=== PATIENT | female | born 1995 | race Two or more races ===

== ENCOUNTER 2020-04-17 19:16 | Emergency (ER) | payer OTHER ==
[~2020-04-17] VITALS: Ht 157.5 cm; Wt 63.5 kg
--- NOTE | 2020-04-17 19:30 | NUR ---
ED Nurse Note: Recieved pt BIBA from bus, pt was on bus and would not get off, pt is awake and alert, mute, will not verbally respond to any questions asked, intermittently stastes "yes", and "stop", pt does appear to understand, pt has blank stare and wont say anything, pt gowned and placed on cardiac monitoring, pt does cooperate mostly, v/s stable, no sob or labored breathing, IV line placed and labs done, will continue to closely monitor.
[2020-04-17 20:19] LABS: BASOPHILS % (AUTO) 0.9 % (0.0-2.0); HEMATOCRIT 41.2 % (37.0-47.0); HEMOGLOBIN 13.7 G/DL (12.0-16.0); LYMPHOCYTES % (AUTO) 28.6 % (20.0-45.0); MEAN CORPUSCULAR VOLUME 93 FL (80-99); MONOCYTES % (AUTO) 7.5 % (1.0-10.0); PLATELET COUNT 367 K/UL (150-450); RED BLOOD COUNT 4.44 M/UL (4.20-5.40); RED CELL DISTRIBUTION WIDTH 12.6 % (11.6-14.8); WHITE BLOOD COUNT 10.2 K/UL (4.8-10.8)
[2020-04-17 20:56] LABS: ALANINE AMINOTRANSFERASE 19 U/L (12-78); ALBUMIN/GLOBULIN RATIO 1.2 (1.0-2.7); ALKALINE PHOSPHATASE 102 U/L (46-116); BILIRUBIN,TOTAL 0.8 MG/DL (0.2-1.0); BLOOD UREA NITROGEN 14 mg/dL (7-18); CALCIUM 8.9 MG/DL (8.5-10.1); CHLORIDE 105 MMOL/L (98-107); CREATININE 0.7 MG/DL (0.55-1.30); POTASSIUM 3.8 MMOL/L (3.5-5.1); SODIUM 140 MMOL/L (136-145)
[2020-04-17 21:02] LABS: CARBON DIOXIDE 23 MMOL/L (21-32)
[2020-04-17 21:36] LABS: ASPARTATE AMINO TRANSFERASE 14 U/L (15-37)
--- NOTE | 2020-04-17 21:40 | NUR ---
ED Nurse Note: Pt continues to rest in bed, remains selectively mute, pt straight cath for urine sample and pt began to speak more, stating she has to go to the bathroom and she wants to go home, does not answer any more questions, remains on monitoring, pt sitting up in bed with blank start, will continue to closely monitor, pt pupils pinpoint.
--- NOTE | 2020-04-17 21:55 | Emergency Room Report ---
History of Present Illness General Chief Complaint: General Complaint Source: Patient, EMS Present Illness HPI 24-year-old female, unknown medical history presents with acute altered mental status, patient was on the bus refused to get off the bus, when police approached her she remained silent refused to answer any questions she was brought in by EMS for evaluation no known aggravating relieving factors no drug paraphernalia found on person, patient presents for evaluation and treatment of her acute altered state Allergies: Coded Allergies: UNABLE TO ASSESS (Unverified , 04/17/20) PT. IS CONFUSED COVID-19 Screening Contact w/high risk pt: No Experienced COVID-19 symptoms?: No COVID-19 Testing performed HEALTH INFORMATION ADMINISTRATOR: No Patient History Limited by: medical condition - Confused Past Medical History: see triage record Reviewed Nursing Documentation: PMH: Agreed; PSxH: Agreed Nursing Documentation-PMH Past Medical History: Deferred Review of Systems All Other Systems: limited - Patient refusing to answer questions Physical Exam Vital Signs Date Time Temp Pulse Resp B/P (MAP) Pulse Ox O2 Delivery O2 Flow Rate FiO2 04/17/20 19:12 97.7 71 18 125/86 (99) 99 Room Air Sp02 EP Interpretation: reviewed, normal General Appearance: well appearing, no apparent distress Head: normocephalic, atraumatic ENT: hearing grossly normal, normal voice Neck: full range of motion, supple Respiratory: no respiratory distress, speaking full sentences Neurologic: alert, other - Responsive Psychiatric: other - Flat affect Skin: no rash Medical Decision Making Diagnostic Impression: Primary Impression: Altered mental state Qualified Codes: R41.82 - Altered mental status, unspecified ER Course 24-year-old female presents with acute altered mental state differential includes metabolic, drug-induced Will continue to observe patient until she reconstitutes Patient signed out to night Laboratory Tests Test 04/17/20 19:50 White Blood Count 10.2 K/UL (4.8-10.8) Red Blood Count 4.44 M/UL (4.20-5.40) Hemoglobin 13.7 G/DL (12.0-16.0) Hematocrit 41.2 % (37.0-47.0) Mean Corpuscular Volume 93 FL (80-99) Mean Corpuscular Hemoglobin 30.9 PG (27.0-31.0) Mean Corpuscular Hemoglobin Concent 33.3 G/DL (32.0-36.0) Red Cell Distribution Width 12.6 % (11.6-14.8) Platelet Count 367 K/UL (150-450) Mean Platelet Volume 6.0 FL (6.5-10.1) L Neutrophils (%) (Auto) 61.0 % (45.0-75.0) Lymphocytes (%) (Auto) 28.6 % (20.0-45.0) Monocytes (%) (Auto) 7.5 % (1.0-10.0) Eosinophils (%) (Auto) 2.0 % (0.0-3.0) Basophils (%) (Auto) 0.9 % (0.0-2.0) Sodium Level 140 MMOL/L (136-145) Potassium Level 3.8 MMOL/L (3.5-5.1) Chloride Level 105 MMOL/L (98-107) Carbon Dioxide Level 23 MMOL/L (21-32) Blood Urea Nitrogen 14 mg/dL (7-18) Creatinine 0.7 MG/DL (0.55-1.30) Estimated Glomerular Filtration Rate > 60 mL/min (>60) Glucose Level 93 MG/DL (74-106) Calcium Level 8.9 MG/DL (8.5-10.1) Total Bilirubin 0.8 MG/DL (0.2-1.0) Aspartate Amino Transferase (AST) 14 U/L (15-37) L Alanine Aminotransferase (ALT) 19 U/L (12-78) Alkaline Phosphatase 102 U/L (46-116) Total Protein 7.3 G/DL (6.4-8.2) Albumin 4.0 G/DL (3.4-5.0) Globulin 3.3 g/dL Albumin/Globulin Ratio 1.2 (1.0-2.7) Salicylates Level 1.8 ug/mL (2.8-20) L Acetaminophen Level < 2 MCG/ML (10-30) L Serum Alcohol < 3 mg/dL Last Vital Signs Date Time Temp Pulse Resp B/P (MAP) Pulse Ox O2 Delivery O2 Flow Rate FiO2 04/17/20 19:12 97.7 71 18 125/86 (99) 99 Room Air Condition: Stable Referrals: NON PHYSICIAN (PCP) Cristian Macedo MD Apr 17, 2020 21:55
[2020-04-17 22:00] VITALS: BP 121/88
[2020-04-17 23:12] LABS: APPEARANCE,URINE CLEAR; BILIRUBIN, URINE NEGATIVE (NEGATIVE); COLOR,URINE PALE YELLOW; GLUCOSE, URINE (UA) NEGATIVE (NEGATIVE); KETONES,URINE 3+ (NEGATIVE); LEUKOCYTE ESTERASE ,URINE NEGATIVE (NEGATIVE); NITRITE,URINE NEGATIVE (NEGATIVE); PH,URINE 6.5 (4.5-8.0); PROTEIN,URINE 1+ (NEGATIVE); UROBILINOGEN,URINE NORMAL MG/DL (0.0-1.0)
[2020-04-17 23:30] VITALS: BP 129/71
--- NOTE | 2020-04-17 23:30 | NUR ---
ED Nurse Note: Pt up and sitting on side of bed, at times states "i want to go home", pt will not answer where she lives, give any phone numbers, has empty purse with social security card only, urine sample sent, will continue to closely monitor, nad or changes noted.
--- NOTE | 2020-04-17 23:37 | Emergency Room Report ---
History of Present Illness General Chief Complaint: General Complaint Source: Patient, EMS Present Illness Allergies: Coded Allergies: UNABLE TO ASSESS (Unverified , 04/17/20) PT. IS CONFUSED COVID-19 Screening Contact w/high risk pt: No Experienced COVID-19 symptoms?: No COVID-19 Testing performed BOARDING SPECIALIST: No Nursing Documentation-[facility] Past Medical History: Deferred Physical Exam Vital Signs Date Time Temp Pulse Resp B/P (MAP) Pulse Ox O2 Delivery O2 Flow Rate FiO2 04/17/20 19:12 97.7 71 18 125/86 (99) 99 Room Air Medical Decision Making Homeless Attestation I, The treating physician, Dr Wyatt Morrow, has assessed and agrees that patient is medically stable for discharge to an outpatient disposition. Diagnostic Impression: Primary Impression: Altered mental state Qualified Codes: R41.82 - Altered mental status, unspecified Additional Impression: Behavioral disorder ER Course Patient signed out to me. She presents with behavioral disorder. Labs unremarkable. No alcohol drugs. She reviewed back at baseline. Says she wants to go home. She is walking around without any difficulty. Will discharge home. Suspect is some underlying psychiatric issue. No criteria for 5150 however. Last Vital Signs Date Time Temp Pulse Resp B/P (MAP) Pulse Ox O2 Delivery O2 Flow Rate FiO2 04/17/20 23:30 98.7 73 18 129/71 99 Room Air Status: improved Disposition: HOME, SELF-CARE Condition: Stable Referrals: NON PHYSICIAN (PCP) Additional Instructions: Follow-up up with in 7 days. Return if worse. Wyatt Morrow MD Apr 17, 2020 23:37
--- NOTE | 2020-04-18 00:45 | NUR ---
ER DISCHARGE NOTE: Patient is cleared to be discharged per ERMD, pt is aox4, on room air, with stable vital signs. pt was given dc instructions, pt was able to verbalize understanding, pt id band and iv site removed without complications. pt is able to ambulate with steady gait. pt took all belongings. pt is no longer mute, states she is not homeless, offered fiood and fluids,refused, pt wanting to leave and left ambulating well, nad noted, states will call [employer] for ride home, pt given resources for drug and rehab facilities.
[2020-04-18 00:53] VITALS: BP 129/71
== END 2020-04-18 00:53 | disposition home or self-care (01) ==
LOC: EDBD 19:16 → EMR 21:22
DX: R41.82 Altered mental status, unspecified (principal); F91.9 Conduct disorder, unspecified
CPT/HCPCS: 36415; 51701; 80053; 80307; 81003; 81025; 85025; G0480; G0481; U0002; Z7502; 99284